=== PATIENT | female | born 1965 | race African-American/Black ===

== ENCOUNTER 2019-03-16 21:31 | Emergency (ER) | payer MEDICARE ==
[~2019-03-16] VITALS: Ht 165.1 cm; Wt 97.0 kg
[2019-03-16] MEDS ORDERED: SODIUM CHLORIDE 0.9% 1,000 ML IV ONE (21:55)
[2019-03-17 06:00] VITALS: BP 151/83
== END 2019-03-17 06:04 | disposition home or self-care (01) ==
LOC: ER 21:53
DX: T51.0X1A Toxic effect of ethanol, accidental (unintentional), initial encounter (principal); Y92.89 Other specified places as the place of occurrence of the external cause; I10 Essential (primary) hypertension
CPT/HCPCS: 36415; 80320; 99283; J7030; G0480